=== PATIENT | female | born 1995 ===

== ENCOUNTER 2018-07-20 06:42 | Outpatient (CLI) | payer OTHER | END 2018-07-20 06:47 | disposition home or self-care (01) | LOC: LAB 06:42 | DX: N39.0 Urinary tract infection, site not specified (principal) ==

== ENCOUNTER 2025-02-10 07:20 | Outpatient (CLI) | payer OTHER | END 2025-02-10 07:27 | disposition home or self-care (01) | LOC: RAD 07:20 | DX: R76.11 Nonspecific reaction to tuberculin skin test without active tuberculosis (principal); Z13.83 Encounter for screening for respiratory disorder NEC ==